=== PATIENT | male | born 1975 | race Caucasian/White ===

== ENCOUNTER 2018-10-02 17:23 | Emergency (ER) | payer BC ==
[2018-10-02] MEDS ORDERED: Lorazepam 2 MG/ML VIAL ONE (18:25)
--- NOTE | 2018-10-02 18:36 | RAD ---
Portable chest: HISTORY: CVA COMPARISON: none FINDINGS: Lung flores are clear. Heart and mediastinum appear unremarkable. Vascularity is normal. Visualized osseous structures unremarkable. IMPRESSION: No acute finding
[2018-10-02 18:44] LABS: #Basophils 0.1 thou/uL (0.0-0.2); #Lymphocytes 1.6 thou/uL (1.20-3.40); #Monocytes 0.5 thou/uL (0.11-0.59); #Neutrophils 5.5 thou/uL (1.40-6.50); %Basophils 1.2 % (0.0-1.0); %Eosinophils 0.3 % (0.0-10.0); %Lymphocytes 20.6 % (21.0-51.0); %Monocytes 5.8 % (0.0-10.0); %Neutrophils 72.1 % (42.0-75.0); Hemoglobin 15.5 g/dL (14.0-18.0); Mean Corpuscular HGB CONC 34.3 g/dL (32.0-36.0); Mean Corpuscular Hemoglobin 30.8 pg (27.0-31.0); Mean Corpuscular Volume 89.9 fL (78.0-98.0); Mean Platelet Volume 7.5 fL (7.4-10.4); Platelet Count 205 thou/uL (130-400); Red Blood Cell (RBC) Count 5.04 mill/uL (4.70-6.10); White Blood Cell (WBC) Count 7.7 thou/uL (4.8-10.8)
[2018-10-02 18:53] LABS: INR-International Normal Ratio 1.1; PTT 38.8 SEC (22.9-36.1); Prothrombin Time 14.1 SEC (12.0-14.7)
[2018-10-02 18:59] LABS: ALT (SGPT) 15 U/L (8-55); AST (SGOT) 21 U/L (5-34); Albumin 4.2 g/dL (3.5-5.0); Alkaline Phosphatase 67 U/L (40-150); Anion Gap 15 mmol/L (10-20); BUN (Urea Nitrogen) 11 mg/dL (8.9-20.6); Bilirubin, Total 0.5 mg/dL (0.2-1.2); CK (CPK) 105 U/L (30-200); Calc. Creatinine Clearance 0 mL/min (70-130); Calcium 9.2 mg/dL (7.8-10.44); Carbon Dioxide 26 mmol/L (22-29); Chloride 103 mmol/L (98-107); Estimated GFR-MDRD Greater than 90; Globulin 2.7 g/dL (2.4-3.5); Glucose 100 mg/dL (70-105); Potassium 3.7 mmol/L (3.5-5.1); Protein, Total 6.9 g/dL (6.0-8.3); Sodium 140 mmol/L (136-145)
== END 2018-10-02 19:20 | disposition home or self-care (01) ==
LOC: SCSER 17:23
DX: I63.9 Cerebral infarction, unspecified (principal); G43.109 Migraine with aura, not intractable, without status migrainosus; Z79.899 Other long term (current) drug therapy
CPT/HCPCS: 71045; 80053; 82550; 84484; 85025; 85610; 85730; 93005; 96374; J2060

== ENCOUNTER 2018-10-03 12:22 | Outpatient (CLI) | payer BC | END 2018-10-03 12:23 | disposition home or self-care (01) | LOC: ULT 12:22 | PROVIDERS: ATTEND Family Medicine | DX: I63.9 Cerebral infarction, unspecified (principal); I08.1 Rheumatic disorders of both mitral and tricuspid valves; Z82.49 Family history of ischemic heart disease and other diseases of the circulatory system | CPT/HCPCS: 93306 ==

== ENCOUNTER 2018-10-07 05:56 | Day surgery (SDC) | payer BC ==
[2018-10-04 12:57] VITALS: BMI 24.3
--- NOTE | 2018-10-07 12:51 | OP ---
DATE OF PROCEDURE: 10/07/2018 PROCEDURE PERFORMED: Transesophageal echocardiogram. INDICATION: A 42-year-old gentleman with CVA. DESCRIPTION OF PROCEDURE: The patient was taken to the PACU. The patient was sedated by Anesthesiology. Transesophageal probe was placed into the distal esophagus and stomach. Echocardiographic images were obtained. The transesophageal probe was removed. FINDINGS: 1. Normal left ventricular systolic function. 2. Normal mitral and aortic valve. 3. Trivial mitral regurgitation. 4. Trivial tricuspid regurgitation. 5. No thrombus noted in left atrial or left atrial appendage. 6. Contrast bubble exam revealed a patent foramen ovale. IMPRESSION: Patent foramen ovale. Job ID: [id number]
[2018-10-07] MEDS ORDERED: PROPOFOL 200 MG/20 ML VIAL ONE (16:48)
[2018-10-07] MEDS ORDERED: Lidocaine 1% PF 5 ML VIAL ONE (16:48)
--- NOTE | 2018-10-09 13:14 | EKG ---
Test Reason : PREOP FRANK Blood Pressure : / mmHG Vent. Rate : 075 BPM Atrial Rate : 075 BPM P-R Int : 170 ms QRS Dur : 120 ms QT Int : 420 ms P-R-T Axes : 074 078 065 degrees QTc Int : 469 ms Normal sinus rhythm with sinus arrhythmia Left ventricular hypertrophy with QRS widening Abnormal ECG When compared with ECG of 02-OCT-2018 18:40, (Unconfirmed) QT has lengthened Confirmed by COCO JACOBS (2) on 10/09/2018 1:13:55 PM Referred By: DEVIKA Confirmed By:COCO JACOBS
== END 2018-10-07 08:55 | disposition home or self-care (01) ==
LOC: CCL 05:56
PROVIDERS: ATTEND Internal Medicine Cardiovascular Disease
PROC: B246ZZ4 Ultrasonography of Right and Left Heart, Transesophageal (ICD-10-PCS; principal; 2018-10-07)
DX: Q21.1 Atrial septal defect (principal); I08.1 Rheumatic disorders of both mitral and tricuspid valves; Z86.73 Personal history of transient ischemic attack (TIA), and cerebral infarction without residual deficits; Z79.82 Long term (current) use of aspirin; Z79.899 Other long term (current) drug therapy
CPT/HCPCS: 93005; 93010; 93312

== ENCOUNTER 2018-10-21 07:31 | Outpatient (CLI) | payer BC ==
[2018-10-21] MEDS ORDERED: Iopamidol 370 76% 100 ML VIAL ONE (09:00)
--- NOTE | 2018-10-21 10:24 | CT ---
CT ANGIOGRAM HEAD: CT ANGIOGRAM NECK: CT HEAD WITH AND WITHOUT CONTRAST: HISTORY: CVA. COMPARISON: None. CORRELATION: Brain MRI from 10/02/2018, Carotid ultrasound from 10/02/2018. TECHNIQUE: CT angiogram of the head is performed in the axial plane. Three-dimensional reformatted images are garcia bmitted for interpretation. FINDINGS CT head without contrast: No parenchymal hemorrhage. No extra-axial hematoma. No midline shift. Basilar cisterns are patent. Brain volume is age-appropriate. Cortical mccartney-white white matter differentiation is preserved. Ventricles and sulci are patent and symmetric. Hypodensity in the rig ht thalamus likely due to remote infarct. Adequate aeration of the sinuses. Calvarium is intact. CT head with contrast: No pathologic enhancement. CT angiogram head: Distal cervical and intracranial internal carotid arteries are patent. Note, the left cervical and intracranial internal carotid artery is smaller than the contralateral side. Anterior circulation: Bilateral M1 segments have symmetric enhancement and luminal diameter. The left A1 segment is likely congenitally diminutive. Bilateral A2 segments have symmetric enhancem ent and luminal diameter. Patent anterior communicating artery is identified. Proximal MCA branches are essentially symmetric. Posterior circulation: Distal cervical vertebral arteries are essentially co-dominant. Right PICA o rigin is unremarkable. Limited evaluation of the left PICA artery origin. Both vertebral arteries supply a normal appearing basilar artery. Bilateral P1 segments have appropriate enhancement and lum inal diameter. IMPRESSION: The visualized left internal carotid artery is slightly smaller than the contralateral side. Finding s may be due to a more proximal stenosis. Consider further evaluation with CT angiogram of the neck. Unremarkable CT angiogram of the [place]. Transcribed Date/Time: 10/21/2018 11:04 AM
== END 2018-10-21 07:32 | disposition home or self-care (01) ==
LOC: SCSCT 07:31
PROVIDERS: ATTEND Psychiatry & Neurology Neurology
DX: I63.9 Cerebral infarction, unspecified (principal)
CPT/HCPCS: 70496; Q9967

== ENCOUNTER 2019-12-22 12:41 | Outpatient (CLI) | payer BC ==
--- NOTE | 2019-12-22 15:02 | CT ---
CTA NECK WITH CONTRAST: Axial tomograms were obtained with multiplanar reconstruction and 3D post processing. INDICATION: Syncope. History of stroke. FINDINGS: Normal origin of the arch vessels without evidence of atherosclerotic change. Common carotid arteries appear patent and symmetric with no evidence of stenosis. Both bulbs are unremarkable. There is no atherosclerotic change. There is no stenosis in either pro ximal internal carotid artery. Artifact produces loss of detail in the distal extracranial ICAs bilaterally. This is at the C1 and C2 level and the lumen is difficult to assess at this level due to artifact which appears to be relat ed to motion. The intracranial internal carotid arteries are identified and appear symmetric. Correlation is made to CT head of 10/21/2018. The extracranial internal carotid arteries at this loca tion were well seen on that study and appeared unremarkable. The vertebral arteries appear patent and symmetric. Lung apices are clear. No soft tissue mass identified. IMPRESSION: Distal extracranial internal carotid arteries are poorly delineated due to artifact. Extracranial in ternal carotid arteries C2 are unremarkable as described above. The distal internal carotid arteries were well seen on CTA of head of 10/21/2018 and were unremarkable on that study. POS: OFF
== END 2019-12-22 12:42 | disposition home or self-care (01) ==
LOC: SCSCT 12:41
PROVIDERS: ATTEND Psychiatry & Neurology Neurology
DX: I63.9 Cerebral infarction, unspecified (principal); R55 Syncope and collapse
CPT/HCPCS: 70498